=== PATIENT | female | born 1995 | race Caucasian/White ===

== ENCOUNTER 2023-01-27 09:01 | Emergency (ER) | payer SELFPAY ==
--- NOTE | 2023-01-27 09:06 | ED.FEMALEGU ---
HPI - Female Genitourinary General Chief complaint: Urogenital-Female Stated complaint: UTI SYMPTOMS Time Seen by Provider: 01/27/23 09:09 Source: patient, RN notes reviewed and old records reviewed Mode of arrival: ambulatory Limitations: no limitations History of Present Illness HPI Narrative: 27-year-old female presents to the [facility] with complaints of urinary symptoms since yesterday. Patient reports burning, urgency and frequency since yesterday. Patient also reports suprapubic pressure. Denies fevers, chest pain. Denies nausea vomiting or diarrhea. Onset (ago): day(s) (1) Related Data Allergies Allergy/AdvReac Type Severity Reaction Status Date / Time No Known Allergies Allergy Unknown Verified 01/27/23 09:11 Review of Systems Review of Systems: All systems reviewed & are unremarkable except as noted in HPI and below Constitutional: Constitutional: Reports no additional constitutional complaints Eyes: Eyes: Reports no additional eye complaints ENT: Reports system reviewed and no additional complaints, except as documented Cardiovascular: Cardiovascular: Reports no additional cardiovascular complaints, Denies chest pain and Denies dyspnea Respiratory: Respiratory: Reports no additional respiratory complaints, Denies chest congestion, Denies cough and Denies dyspnea Gastrointestinal: Gastrointestinal: Reports no additional gastrointestinal complaints, Denies abdominal pain, Denies nausea and Denies vomiting Genitourinary: Genitourinary: Reports as per HPI Musculoskeletal: Musculoskeletal: Reports no additional musculoskeletal complaints Integumentary/Breasts: Skin/Breast: Reports system reviewed and no additional complaints, except as docu Neurologic: Reports system reviewed and no additional complaints, except as documented Psychiatric: Psychiatric: Reports no additional psychiatric complaints Allergic/Immunologic: Allergic/Immunologic: Reports no additional allergic/immunologic complaints [facility] Surgical History Surgical History History of removal of cyst right upper arm Family History Family History Grandparent Hypertension Family history of elevated blood lipids Diabetes mellitus Sibling Family history of thyroid disease Family history of mental disorder Mother Breast cancer Daughter No problems noted. Other Carcinoma of colon Cerebrovascular accident Family history of malignant neoplasm of breast Social History Social History Second hand tobacco smoke exposure: No Comments At the time of my signature, I reviewed and agree with the nursing past medical, surgical, social, and family history. There is no relevant family history pertinent to the patient complaint. Exam Const: General: cooperative, healthy appearing, comfortable, no acute distress, well developed, alert and well nourished Nutritional Appearance: well nourished Orientation/consciousness: patient oriented x3 Limitations: no limitations HENMT: Head: normal to inspection Ears: hearing grossly normal bilaterally and external ears normal Face/Nose/Sinus: Normal external nose present, Normal nares present, Normal nasal mucous membranes and turbinates present and normal facial exam Face and sinus: normal facial exam Mouth: Yes lip normal and Yes moist mucous membranes Eyes: General: appearance normal, both eyes and all related structures Alignment and Position: alignment normal Periorbital: periorbital findings normal Pupils: Equal, round and reactive pupils present EOM: EOMs intact bilaterally Neck: Neck: normal visual inspection, full ROM, no lymphadenopathy and no meningeal signs Chest: Chest palpation & inspection: normal inspection of the chest Resp: Effort & Inspection: normal respiratory effort and able to speak in complete sentences
[2023-01-27 09:09] VITALS: BP 123/81; PULSE 60; RESP 16; TEMP 36.6; O2SAT 100
== END 2023-01-27 09:30 | disposition home or self-care (01) ==
PROVIDERS: Emergency Provider Nurse Practitioner; PCP Family Medicine
DX: N39.0 Urinary tract infection, site not specified (principal); E28.2 Polycystic ovarian syndrome
CPT/HCPCS: 81003; 87086; 87088; 99213; G0463

== ENCOUNTER 2023-06-30 14:04 | Outpatient (CLI) | payer OTHER, SELFPAY ==
--- NOTE | ~2023-06-30 | US_ITS ---
EXAMINATION: US breast RT limited HISTORY: Palpable lump in the upper outer quadrant of the right breast TECHNIQUE: Limited right breast ultrasound is performed in the area of clinical concern. FINDINGS: There is a benign appearing intramammary lymph node in the upper outer quadrant of the righ t breast at the 10:00 location, 7 cm from the nipple corresponding to the palpable abnormality of con cern. No suspicious cystic or solid mass is identified. IMPRESSION: No sonographic evidence of malignancy. BI-RADS Category 2: Benign finding(s). Reviewed, dictated and finalized at location A. ECTOR TIMERS
== END 2023-06-30 14:05 | disposition home or self-care (01) ==
PROVIDERS: PCP Family Medicine; Visit Provider Physician Assistant
DX: N63.11 Unspecified lump in the right breast, upper outer quadrant (principal)
CPT/HCPCS: 76642

== ENCOUNTER 2023-09-09 14:54 | Emergency (ER) | payer SELFPAY ==
[2023-09-09 15:00] VITALS: BP 106/70; PULSE 70; RESP 18; TEMP 36.6; O2SAT 100
--- NOTE | 2023-09-09 15:23 | ED.URI ---
HPI - URI/Sore Throat General Chief Complaint: Upper Respiratory Infection Stated Complaint: SINUS CONGESTION Time Seen by Provider: 09/09/23 15:03 Source: patient and RN notes reviewed Mode of arrival: ambulatory Limitations: no limitations History of Present Illness HPI Narrative: Patient presents today with a one-week history of nasal congestion, right ear pain and pressure, rhinorrhea, hoarse voice, cough that is worse at night. Denies shortness of breath or fever. She has tried Sudafed and ibuprofen with some mild relief. She is a nonsmoker. No history of asthma. Related Data Allergies Allergy/AdvReac Type Severity Reaction Status Date / Time No Known Allergies Allergy Unknown Verified 06/02/23 14:05 Review of Systems Review of Systems: CONSTITUTIONAL: Denies body aches, fever, chills, or sweats. EYES: Denies visual changes, redness, or discharge. ENT: + sore throat, right ear pain rhinorrhea, hoarseness CARDIOVASCULAR: Denies chest pain, palpitations, or edema. RESPIRATORY: Denies dyspnea+ cough. GASTROINTESTINAL: Denies abdominal pain, nausea, vomiting, or diarrhea. GENITOURINARY: Denies dysuria or hematuria. SKIN: Denies rash, itching, or wounds. MUSCULOSKELETAL: Denies back pain, joint pain, or myalgia. NEUROLOGIC: Denies headache, numbness, tingling, or weakness. PSYCH: Denies depression or anxiety. [facility] Surgical History Surgical History History of removal of cyst right upper arm Family History Family History Grandparent Hypertension Family history of elevated blood lipids Diabetes mellitus Sibling Family history of thyroid disease Family history of mental disorder Mother Breast cancer Daughter No problems noted. Other Carcinoma of colon Cerebrovascular accident Family history of malignant neoplasm of breast Social History Social History Smoking status: Never smoker Alcohol intake: never Substance use: never Lack of Transportation: No Lack of Food: Never True Current Housing: I Have Housing Concerned About Future Housing: No Difficulty Paying Gas/Electric Bills: No Difficulty Paying for Meds: No Education: Associate Degree Difficulty w/ Childcare or Family Care: No Comments At time of signature, I have reviewed and agree with nursing past medical, surgical, social and family history unless otherwise noted. Please see nursing chart for further information. There is no relevant family history pertinent to the presenting complaint Exam Narrative: GENERAL: Well-appearing, well-nourished, and in no acute distress. HEAD: Normocephalic, atraumatic. EYES: EOMI. No redness or drainage. Conjunctivae normal. ENT: Mucous membranes pink and moist. Nares congested. No rhinorrhea. TMs normal bilaterally. Throat normal with small amount of postnasal drainage. Uvula midline. Bilateral maxillary sinus tenderness. Hoarse voice NECK: Normal AROM. Supple. No lymphadenopathy. CHEST: No respiratory distress. Clear to auscultation. HEART: Regular rate and rhythm. No murmur appreciated. EXTREMITIES: Normal range of motion. No edema. SKIN: Warm, dry, no rash. Capillary refill normal. Normal skin turgor. NEURO: No focal deficits. Alert and oriented x3. Gait steady. PSYCH: Normal affect. No signs of depression or anxiety. Course Course Level of Care: Express Care Visit Vital Signs Vital signs: Vital Signs Temperature 97.9 F 09/09/23 15:00 Pulse Rate 70 09/09/23 15:00 Respiratory Rate 18 09/09/23 15:00 Blood Pressure 106/70 09/09/23 15:00 Pulse Oximetry 100 09/09/23 15:00 Oxygen Delivery Room Air 09/09/23 15:00 Temperature 97.9 F 09/09/23 15:00 Pulse Rate 70 09/09/23 15:00 Respiratory Rate 18 09/09/23 15:00 Blood Pressure 106/70 0
== END 2023-09-09 15:41 | disposition home or self-care (01) ==
PROVIDERS: Emergency Provider Nurse Practitioner; PCP Family Medicine
DX: J40 Bronchitis, not specified as acute or chronic (principal); J01.00 Acute maxillary sinusitis, unspecified
CPT/HCPCS: 99213; G0463

== ENCOUNTER 2023-12-01 09:17 | Outpatient (RCR) | payer MEDICAID, SELFPAY ==
[2023-12-01] MEDS: RHO(D) IMMUNE GLOBULIN 300 MCG/2 ML SYRINGE IM (14:30)
--- NOTE | 2023-12-01 15:02 | PC.NURSE ---
1410: RN called lab due to patient being told her RhoGam shot was ready but RN was unable to see patient's blood type or that the RhoGam was ready. Lab stated it is not showing up due to two different birthdays in medical records. Lab stated they can release the RhoGam and medical records is fixing the problem.
== END 2024-02-29 23:59 | disposition home or self-care (01) ==
LOC: ANHLAB 09:17
PROVIDERS: PCP Family Medicine; Visit Provider Obstetrics & Gynecology
DX: O26.859 Spotting complicating pregnancy, unspecified trimester (principal); O36.0190 Maternal care for anti-D [Rh] antibodies, unspecified trimester, not applicable or unspecified; Z3A.00 Weeks of gestation of pregnancy not specified
CPT/HCPCS: 36415; 85461; 86850; 86900; 86901; 90384; 96372; J2790

== ENCOUNTER 2024-01-08 07:13 | Outpatient (CLI) | payer MEDICAID, SELFPAY ==
--- NOTE | ~2024-01-08 | US_ITS ---
US retroperitoneal comp 01/08/2024 07:41 Procedure: Realtime transabdominal ultrasound of the kidneys and bladder. Indication: Low back pain. Patient 20 weeks . Comparison: No prior studies for comparison. Findings: Renal echotexture is normal bilaterally without contour deforming mass or renal calculus. T here is mild left hydronephrosis. The right kidney measures 11 cm and left kidney measures 13.4 cm. Bladder within normal limits. Impression: 1: Mild left hydronephrosis. Reviewed, dictated and finalized at location B. Impression: 1: Mild left hydronephrosis.
== END 2024-01-08 07:14 | disposition home or self-care (01) ==
LOC: CHSIMG 07:16
PROVIDERS: PCP Family Medicine; Visit Provider Obstetrics & Gynecology
DX: M54.50 Low back pain, unspecified (principal); N20.0 Calculus of kidney
CPT/HCPCS: 76770

== ENCOUNTER 2024-04-23 12:17 | Observation (INO) | payer OTHER, SELFPAY ==
--- NOTE | 2024-04-23 10:36 | OBADM ---
This patient, Christin Butcher, admitted to the OB room Labor/Delivery/Recovery 118 for observation. Patient/family oriented to hospital policies and general routines including ID bracelet, bed and alarms, visiting hours, pain management, procedures, bathroom and other care routines, personal items, smoking policy, room service/diet, and visiting hours. Patient/Family are encouraged to report perceived risks to care and to ask questions if they do not understand what they are told or what they should do.
[2024-04-23 11:48] LABS: Add Urine Microscopic? NO; Appearance Urine Clear (Clear); Bilirubin Urine Negative (Negative); Blood Urine Negative (Negative); Color Urine Yellow (Yellow); Glucose Urine UA Negative (Negative); Ketones Urine Trace mg/dL (Negative); Leukocyte Esterase Ur Negative LEU/UL (Negative); Nitrate Urine Negative (Negative); Protein Urine Negative (Negative); Specific Grav Ur 1.015 (1.001-1.035)
--- NOTE | 2024-04-23 12:17 | PC.NURSE ---
Dr Beavers notified of contractions at 34.5 weeks and c/o of decreased movement and feeling good movement now. Orders received.
[2024-04-23] MEDS: NIFEdipine 30 MG TAB.ER.24 PO (12:30)
--- NOTE | 2024-04-23 13:40 | PC.NURSE ---
Dr Beavers notified that contractions have spaced and patient is feeling them less. Ok to perform sve. May dc home.
--- NOTE | 2024-05-15 21:35 | P.PNOB_ITS ---
OB - Triage/Final Diagnosis Visit Information Comments/Additional reasons for admission: I have assessed the risk for this patient, Christin Butcher, and determined that she would benefit from observation care. Evaluation Laboratory results: Laboratory Tests 04/23/24 11:37 Urine Color Yellow Urine Appearance Clear Urine pH 8.0 Ur Specific [place] 1.015 Urine Protein Negative Urine Glucose (UA) Negative Urine Ketones Trace H Ur Blood (Man) Negative Urine Nitrate Negative Urine Bilirubin Negative Urine Urobilinogen 1.0 Ur Leukocyte Esterase Negative Final Diagnosis (1) Decreased movement: Code(s): O36.8190 - Decreased movements, unspecified trimester, not applicable or unspecified Status: Acute
== END 2024-04-23 13:55 ==
PROVIDERS: Admitting Provider Obstetrics & Gynecology; PCP Family Medicine; Visit Provider Obstetrics & Gynecology
DX: O36.8130 Decreased fetal movements, third trimester, not applicable or unspecified (principal); Z3A.34 34 weeks gestation of pregnancy
CPT/HCPCS: 81003; 87086; A9270; G0378; G0379

== ENCOUNTER 2024-04-28 11:30 | Outpatient (CLI) | payer OTHER, SELFPAY ==
[2024-04-28 12:00] VITALS: BP 116/69; PULSE 90
[2024-04-28 12:21] VITALS: BP 116/69; PULSE 90
[2024-04-28 12:26] LABS: OBXCEM ROM Plus Negative (Negative)
== END 2024-04-28 12:15 | disposition home or self-care (01) ==
LOC: ANHOBOP 11:34 → ANHOBPP 11:34
PROVIDERS: PCP Family Medicine; Visit Provider Obstetrics & Gynecology
DX: O42.90 Premature rupture of membranes, unspecified as to length of time between rupture and onset of labor, unspecified weeks of gestation (principal); Z3A.00 Weeks of gestation of pregnancy not specified
CPT/HCPCS: 59025; 84112; 99199

== ENCOUNTER 2024-05-14 09:00 | Outpatient (RCR) | payer OTHER, SELFPAY ==
--- NOTE | 2024-05-27 11:54 | PC.NURSE ---
Late Entry: 05/14/24 - NST, EDC, 05/30/24, 37.5 weeks, Reason: Hypertension in , BP 124/72, Pulse 81, FHT's baseline 145, 15x15 accels noted. Reactive tracing, Tracing duration [id number], Mild contractions noted every 1.5-6.5 minutes, lasting 40-90 seconds. Patient discharged home with labor precautions, monitor movement and report any bleeding or leaking. Tracing faxed to office.
== END 2024-08-12 23:59 | disposition home or self-care (01) ==
LOC: ANHOBOP 09:00
PROVIDERS: PCP Family Medicine; Visit Provider Obstetrics & Gynecology
DX: O16.3 Unspecified maternal hypertension, third trimester (principal); Z3A.37 37 weeks gestation of pregnancy
CPT/HCPCS: 59025

== ENCOUNTER 2024-05-14 09:04 | Outpatient (RCR) | payer OTHER, SELFPAY ==
[2024-02-29 11:04] LABS: Hematocrit 35.4 % (37.0-47.0); Hemoglobin 12.1 g/dL (12.0-15.0)
[2024-02-29 11:54] LABS: HIV 1/2 Ab P24 Ag Result Negative (Negative)
[2024-02-29] MEDS: RHO(D) IMMUNE GLOBULIN 300 MCG/2 ML SYRINGE IM (17:43)
[2024-02-29 18:56] LABS: Rapid Plasma Reagin Non-Reactive (NonReactive)
[2024-05-14 10:01] VITALS: BP 124/72; PULSE 81
== END 2024-05-29 23:59 | disposition home or self-care (01) ==
LOC: ANHLAB 09:04
PROVIDERS: PCP Family Medicine; Visit Provider Obstetrics & Gynecology
DX: Z11.4 Encounter for screening for human immunodeficiency virus [HIV] (principal); Z11.3 Encounter for screening for infections with a predominantly sexual mode of transmission; O36.0130 Maternal care for anti-D [Rh] antibodies, third trimester, not applicable or unspecified; Z3A.00 Weeks of gestation of pregnancy not specified
CPT/HCPCS: 36415; 59025; 85014; 85018; 85461; 86592; 86703; 86850; 86880; 86900; 86901; 86902; 90384; 96372; G0432; J2790

== ENCOUNTER 2024-05-15 15:49 | Inpatient (IN) | payer OTHER, SELFPAY ==
[2024-05-15] VITALS (29 sets, daily range): BP systolic 83–130; BP diastolic 59–80; PULSE 73–114; TEMP 36.3–36.6; BMI 32.0
--- NOTE | 2024-05-15 16:26 | LDADM ---
This patient, Christin Butcher, was admitted to Labor/Delivery/Recovery 106 on 05/15/24 at 15:49. Plans for labor, pain management and were discussed with patient. Patient/family oriented to hospital policies and general routines including ID bracelet, bed and alarms, visiting hours, pain management, procedures, bathroom and other care routines, personal items, smoking policy, room service/diet and guest tray routines, infant security routines, and visiting hours. Patient/Family are encouraged to report perceived risks to care and to ask questions if they do not understand what they are told or what they should do. See OBIX for further documentation.
[2024-05-15 16:52] LABS: Basophils Absolute Auto 0.1 K/mm3 (0.0-0.1); Basophils Percent Auto 0.5 % (0.2-1.2); Eosinophils Absolute Auto 0.1 K/mm3 (0-0.3); Eosinophils Percent Auto 0.8 % (0-4.4); Hematocrit 32.8 % (37.0-47.0); Immature Granulocyte Absolute 0.05 K/mm3 (0.00-0.031); Immature Granulocyte Percent A 0.5 % (0-0.5); Lymphocytes Absolute Auto 2.24 K/mm3 (0.9-3.2); Lymphocytes Percent Auto 20.3 % (18.3-44.2); Mean Corpuscular HGB Conc 33.5 g/dl (32-36); Mean Corpuscular Hemoglobin 30.8 pg (26-34); Mean Corpuscular Volume 91.9 fl (80-100); Mean Platelet Volume 10.7 fl (7.4-10.4); Monocytes Absolute Auto 0.7 K/mm3 (0.1-0.6); Monocytes Percent Auto 5.9 % (2.6-8.5); Platelet Count Result 184 k/mm3 (150-375); Red Blood Count 3.57 M/mm3 (4.2-5.4); Red Cell Distribution Width 12.8 % (11.5-14.5); White Blood Count 11.1 K/mm3 (4.5-10.0)
[2024-05-15 17:05] LABS: Uric Acid 3.5 mg/dL (2.5-7.5)
[2024-05-15 17:06] LABS: Alanine Aminotransferase 17 U/L (6-35); Albumin Level 3.9 g/dL (3.5-5.1); Alkaline Phosphatase 117 U/L (38-126); Anion Gap 10 mmol/L (4-12); Aspartate Amino Transferase 29 U/L (14-36); Bilirubin,Total 0.8 mg/dL (0.2-1.3); Blood Urea Nitrogen 8 mg/dL (7-17); Calcium 9.1 mg/dL (8.4-10.2); Carbon Dioxide 20 mmol/L (22-30); Chloride 104 mmol/L (98-107); Estimated CRCL calculation 156 ml/min; Estimated Glomerular Filt Rate > 60; Glucose 84 mg/dL (65-110); Potassium 3.4 mmol/L (3.4-5.0); Sodium 134 mmol/L (137-145)
[2024-05-15] MEDS: LACTATED RINGERS 1,000 ML 125 ML IV CONT ×2 (17:18→22:46)
[2024-05-15 17:48] LABS: HIV 1/2 Ab P24 Ag Result Negative (Negative)
[2024-05-15 18:10] LABS: Rapid Plasma Reagin Non-Reactive (NonReactive)
[2024-05-15] MEDS: OXYTOCIN 30 UNITS/NS 500 ML 30 UNITS/500 ML BAG IV CONT (18:50)
[2024-05-16] VITALS (350 sets, daily range): BP systolic 80–132; BP diastolic 35–101; PULSE 28–206; RESP 16; TEMP 36.4–36.8; O2SAT 90–100
--- NOTE | 2024-05-16 06:29 | WPDANESEPP ---
Anes - Eval Pre Procedure Procedure: labor epidural Date/Time: 05/16/24 06:29 Surgeon: paul Preop Diagnosis: pain during labor Pre Op Diagnosis: IOL Patient Data Age: 28 Gender: F Height: 1.68 m Weight: 90 kg Last Vital Signs Temp 36.6 C 05/16/24 06:01 Pulse 98 05/16/24 06:15 BP 116/73 05/16/24 06:15 Pulse Ox 100 05/16/24 06:26 O2 Del Method Room Air 05/15/24 16:25 Allergies Allergy/AdvReac Type Severity Reaction Status Date / Time No Known Allergies Allergy Unknown Verified 12/02/23 12:38 Home Medications Medication Instructions Recorded Confirmed Type [id number] 1 mg 1 tablet PO DAILY 05/15/24 05/15/24 History tablet Laboratory Tests 05/15/24 16:10 WBC 11.1 H K/mm3 (4.5-10.0) RBC 3.57 L M/mm3 (4.2-5.4) Hgb 11.0 L g/dL (12.0-15.0) Hct 32.8 L % (37.0-47.0) MCV 91.9 fl (80-100) MCH 30.8 pg (26-34) MCHC 33.5 g/dl (32-36) RDW 12.8 % (11.5-14.5) Plt Count 184 k/mm3 (150-375) MPV 10.7 H fl (7.4-10.4) Immature Gran % (Auto) 0.5 % (0-0.5) Neut % (Auto) 72.0 % (45.5-73.1) Lymph % (Auto) 20.3 % (18.3-44.2) [place] % (Auto) 5.9 % (2.6-8.5) Eos % (Auto) 0.8 % (0-4.4) Baso % (Auto) 0.5 % (0.2-1.2) Lymph # (Auto) 2.24 K/mm3 (0.9-3.2) [place] # (Auto) 0.7 H K/mm3 (0.1-0.6) Eos # (Auto) 0.1 K/mm3 (0-0.3) Baso # (Auto) 0.1 K/mm3 (0.0-0.1) Abs Immat Gran (auto) 0.05 H K/mm3 (0.00-0.031) Absolute Neuts (auto) 8.0 H K/mm3 (1.3-6.7) Absolute Nucleated RBC 0.000 K/mm3 (0.0-0.012) Nucleated RBC % 0.0 % (0.0-0.2) Sodium 134 L mmol/L (137-145) Potassium 3.4 mmol/L (3.4-5.0) Chloride 104 mmol/L (98-107) Carbon Dioxide 20 L mmol/L (22-30) Anion Gap 10 mmol/L (4-12) BUN 8 mg/dL (7-17) Creatinine 0.50 L mg/dL (0.7-1.0) Estim Creat Clear Calc 156 ml/min Estimated GFR > 60 (59 - ) Glucose 84 mg/dL (65-110) Uric Acid 3.5 mg/dL (2.5-7.5) Calcium 9.1 mg/dL (8.4-10.2) Total Bilirubin 0.8 mg/dL (0.2-1.3) AST 29 U/L (14-36) ALT 17 U/L (6-35) Alkaline Phosphatase 117 U/L (38-126) Total Protein 8.0 g/dL (6.3-8.2) Albumin 3.9 g/dL (3.5-5.1) RPR Non-reactive (NonReactive) HIV 1&2 Ab/P24 Ag 4thGn Negative (Negative) Blood Type A Negative Antibody Screen Positive Antibody Identification Passive Due to RH Imm Glob Antigen Identification Not Reportable TONY, IgG Interpret Neg TONY, Poly Interpret Not Performed TONY, Complement Interp Not Performed Patient hx anesthesia problems: none Family hx anesthesia problems: none Results Review: All pre-operative results and documents have been reviewed as part of the pre-operative evaluation. [facility] Past Medical History Medical History (Updated 05/16/24 @ 06:31 by Natalie Bustamante CRNA) Anxiety Depression IUP (intrauterine ), incidental Obesity Scoliosis Surgical History Surgical History (System 12/02/23 @ 12:38 by Wendie Jones) History of removal of cyst right upper arm Family History Family History Grandparent Hypertension Family history of elevated blood lipids Diabetes mellitus Sibling Family history of thyroid disease Family history of mental disorder Mother Breast cancer Daughter No problems noted. Other Carcinoma of colon Cerebrovascular accident Family history of malignant neoplasm of breast Social History Social History (System 12/02/23 @ 12:38 by Wendie Jones) Smoking status: Never smoker Alcohol intake: never Substance use: never Do You Feel Safe in your Home?: Yes Lack of Transportation: No Lack of Food: Never True Current Housing: I Have Housing Concerned About Future Housing: No Difficulty Paying
[2024-05-16] MEDS: LACTATED RINGERS 1,000 ML 125 ML IV CONT ×3 (06:42→19:17)
--- NOTE | 2024-05-16 07:51 | WPDHPUPDATE1 ---
History and Physical Update Update Date/Time: 05/16/24 07:51 28-year-old multiparous female at 39 weeks gestation presents for elective induction. Pitocin has been administered for several hours. Artificial rupture membranes was performed. 3-4 cm/ 50%/ -3. Reassuring status. Continue expectant management and Pitocin with external monitoring. History and Physical has been reviewed, including an updated exam of the patient. There are NO changes in the patient's condition. Risks, benefits, and alternatives have been discussed and questions answered. Patient agrees to proceed with procedure.
[2024-05-16] MEDS: SODIUM CHLORIDE 0.9% IV 300 ML 600 ML I-UTERINE (09:31)
[2024-05-16] MEDS: SODIUM CHLORIDE 0.9% IV 1,000 ML 300 ML (09:31)
[2024-05-16] MEDS: SODIUM CHLORIDE 0.9% IV 1,000 ML 150 ML I-UTERINE ×2 (11:41→14:50)
[2024-05-17] VITALS (62 sets, daily range): BP systolic 92–133; BP diastolic 44–102; PULSE 77–145; RESP 16–20; TEMP 36.4–37.3; O2SAT 97–100
--- NOTE | 2024-05-17 01:07 | PM.OBPRVD ---
OB - Vaginal Delivery Note Procedure Delivery date: 05/17/24 Induction method: AROM and Per Pitocin Protocol Delivery monitor: External FHT and Internal Uterine Route of delivery: Episiotomy description: None Laceration Description: Perineal - 2nd Degree and Labial Delivery repair: vicryl Specimen: No Quantitative Blood Loss (ml): 250 Disposition: Floor Complications: No immediate complications Baby Date of : 05/17/24 Time of : 12:47 Gestational Age by Date: 37 gender: Male
[2024-05-17] MEDS: OXYTOCIN 30 UNITS/NS 500 ML 30 UNITS/500 ML BAG 125 UNITS IV CONT (01:11)
[2024-05-17] MEDS: WITCH HAZEL 40 PADS 1 PAD TOPICAL (03:22)
[2024-05-17] MEDS: BENZOCAINE 20% AER SPR (*SP) 56 GM CAN 1 SPRAY TOPICAL (03:22)
[2024-05-17] MEDS: ACETAMINOPHEN 325 MG TABLET 650 MG PO ×2 (04:30→12:39)
[2024-05-17] MEDS: IBUPROFEN 600 MG TABLET PO ×2 (04:30→12:39)
--- NOTE | 2024-05-17 06:37 | PC.NURSE ---
0630- Pt taken to level 2 nursery via WC by Delfina ARAIZA.
--- NOTE | 2024-05-17 07:35 | PC.NURSE ---
Patient returned from first floor nursery.
--- NOTE | 2024-05-17 08:20 | PC.NURSE ---
Breast pump initiated due to [infant transfer]. Mother has her own Motif pump. We set it all up and reviewed the buttons and modes. Instructions given on cleaning, care, usage, that there should be no pain, pumping schedule for milk production, collection, and storage of human milk. Patient was assessed for correct placement, flange size (measured 21mm, recommend 24mm), to pump for comfort and nipple stretching/stimulation for adequate milk production every 3 hours (8 times in 24 hours) 1-2 times at night. Parents given the Pumping Primer handout.?Mother voiced understanding of the education shared along with mom/baby guide her Motif pump manual. Reported to the Primary RN.
[2024-05-17] MEDS: MULTIVIT/MIN/PREN/FOL AC/IRON TABLET 1 TAB PO (09:26)
[2024-05-17] MEDS: DOCUSATE SODIUM 100 MG CAPSULE PO (09:26)
--- NOTE | 2024-05-17 12:51 | PC.NURSE ---
Patient left on therapeutic leave pass to visit infant that was transferred to [facility] this morning.
--- NOTE | 2024-05-17 17:25 | PC.NURSE ---
Patient returned from therapeutic leave pass.
--- NOTE | 2024-05-17 17:42 | WPDANLDPN2 ---
Anes-Prog Note L&D Date/Time: 05/17/24 17:42 Neuro status: Neuro function grossly intact. Cardiovascular status: normal Respiratory status: normal Airway patency: baseline Mental status: baseline Post-Op hydration status: normal Vital Signs: Last Vital Signs Temp 36.4 C 05/17/24 12:41 Pulse 98 05/17/24 12:41 Resp 16 05/17/24 12:41 BP 109/67 05/17/24 12:41 Pulse Ox 100 05/17/24 12:41 O2 Del Method Room Air 05/17/24 11:25 Pain score (VAS): 0 I/O: Intake & Output 05/17/24 05/17/24 05/17/24 07:59 15:59 23:59 Intake Total 0 Output Total 795 900 Balance -795 -900 Post-procedural complaints: none Patient feedback: Patient satisfied with anesthetic care.
[2024-05-18] MEDS: ACETAMINOPHEN 325 MG TABLET 650 MG PO (03:55)
[2024-05-18] MEDS: IBUPROFEN 600 MG TABLET PO (03:55)
[2024-05-18 03:56] LABS: Hematocrit 28.5 % (37.0-47.0); Hemoglobin 9.2 g/dL (12.0-15.0)
[2024-05-18 04:10] VITALS: BP 98/51
[2024-05-18 07:50] VITALS: BP 96/69; PULSE 71; RESP 16; TEMP 36.4; O2SAT 96
--- NOTE | 2024-05-18 08:20 | PC.NURSE ---
Consulted with mother concerning needs and she shared her ability to pump independently without pain. Reinforced understanding of milk production, transition of milk, stimulating her breasts every 3 hours, and community resources along with the mom and baby guide. Mother voiced understanding of the information shared, is confident to continue pumping at home, when to call for assistance, denies any additional assistance or education at this time. Reported to the Primary RN.
--- NOTE | 2024-05-18 08:28 | PC.NURSE ---
On 05/18/24, the student, Gabrielle Mcmahon, provided care and completed [facility] documentation on this patient. I have reviewed the student's documentation and agree with the findings.
[2024-05-18] MEDS: RHO(D) IMMUNE GLOBULIN 300 MCG/2 ML SYRINGE IM (08:56)
--- NOTE | 2024-05-18 08:58 | PM.OBPNVD ---
OB - PN: Subj Subjective Date/time seen: 05/18/24 08:58 Patient comments: no complaints, pain well controlled, incisional pain, tolerating diet and flatus present OB - PN: Obj Data Labs 05/18/24 03:51 05/15/24 16:10 Labs: Laboratory Results - last 24 hr 05/18/24 03:51 Hgb 9.2 L Hct 28.5 L Blood Type A Negative Antibody Screen Negative Screen Negative Baby's Blood Type O pos Baby's TONY Negative Doses of RhIg Required 1 OB - PN A/P Plan day: 1 Plan: routine care Comments: No problems, routine care Time Spent With Patient Time: Total time spent is greater than 50% in coordination of care (as documented) at patient's floor/unit and/or counseling patient: Exam Const: General: comfortable, no acute distress and alert Resp: Effort & Inspection: normal respiratory effort Auscultation: no crackles, no rales and no rhonchi Cardio: Rate: regular rate Heart sounds: no click, no murmurs and no rubs GI: Inspection: non-distended GI Palp: No Tenderness to palpation present (GI) Auscultation: normal bowel sounds Other: Incision - CDI Extrem: General: normal to inspection, no pedal edema and no calf tenderness
--- NOTE | 2024-05-18 08:58 | PM.OBDSVD ---
DS: Admitting Diagnosis Discharge Date 05/18/24 Admitting Diagnosis term delivered DS: Discharge Diagnosis Discharge Diagnosis (1) Term delivered: Code(s): O80 - Encounter for full-term uncomplicated delivery Status: Acute OB - DS: Summary OB Procedures : None OB Procedures Intrapartum: Spontaneous Vag Delivery OB Procedures: : None Peripartum Data Laceration Description: Perineal - 2nd Degree and Labial Episiotomy description: None Time Spent with Patient Time attestation: Total time spent providing and/or coordinating discharge services: DS: Data Data Completed and Pending Labs on day of discharge: Labs from last 24 hours 05/18/24 03:51 Hgb 9.2 L Hct 28.5 L Blood Type A Negative Antibody Screen Negative Screen Negative Baby's Blood Type O pos Baby's TONY Negative Doses of RhIg Required 1 Discharge Plan Discharge Discharging Clinician: Silas Beavers Patient Disposition: Home, Self-Care Activity: pelvic rest Diet: regular Patient Instructions: Antibiotic Form Stand Alone Forms: General Discharge Information Follow-up/Referrals: Silas Beavers MD [Physician] - Discharge Medications: No Action 1 mg Tablet 1 tablet PO DAILY Date of admission: 05/15/24 15:49 Primary Care Provider: Rian Howell Admitting Provider: Silas Beavers Attending physician on admission: Silas Beavers Condition: Stable
--- NOTE | 2024-05-18 09:22 | PC.NURSE ---
Pt does not want to come back for a follow up visit due to baby being transferred to [facility]. Mother would rather spend as much time with baby as possible. Discussed signs and symptoms of pre-eclampsia and when to call for evaluation. She verbalized understanding.
[2024-05-18] MEDS: MULTIVIT/MIN/PREN/FOL AC/IRON TABLET 1 TAB PO (09:30)
[2024-05-18] MEDS: POLYSACCHARIDE IRON COMPLEX 150 MG CAPSULE PO (09:30)
[2024-05-18] MEDS: DOCUSATE SODIUM 100 MG CAPSULE PO (09:30)
== END 2024-05-18 10:15 | disposition home or self-care (01) | DRG 560 ==
LOC: ANHLDR 15:55 → ANHOB2 05-17 03:53
PROVIDERS: Admitting Provider Obstetrics & Gynecology; PCP Family Medicine; Visit Provider Obstetrics & Gynecology
DX: O13.4 Gestational [pregnancy-induced] hypertension without significant proteinuria, complicating childbirth (principal); O70.1 Second degree perineal laceration during delivery; Z3A.39 39 weeks gestation of pregnancy; Z37.0 Single live birth
CPT/HCPCS: 36415; 80053; 84550; 85014; 85018; 85025; 85461; 86592; 86703; 86850; 86880; 86900; 86901; 86902; 90384; A9270; G0432; J2590; J2790; J2795; J7030; J7120